=== PATIENT | male | born 1965 | race Caucasian/White ===

== ENCOUNTER 2018-12-08 22:48 | Emergency (ER) | payer BC ==
[2018-12-08] MEDS ORDERED: SODIUM CHLORIDE 0.9% 1,000 ML IV STA (23:09)
[2018-12-08] MEDS ORDERED: KETOROLAC 30 MG/ML 1 ML VIAL IVP STA (23:09)
--- NOTE | 2018-12-08 23:53 | CT ---
EXAMINATION TYPE: CT abdomen pelvis wo con DATE OF EXAM: 12/08/2018 COMPARISON: None HISTORY: Patient presents with right flank pain. Patient states pain radiates into right leg and groi n. NO prior. CT DLP: 550.6 mGycm Automated exposure control for dose reduction was used. TECHNIQUE: Helical acquisition of images was performed from the lung bases through the pelvis. FINDINGS: Lung bases are clear of infiltrate. There is subsegmental atelectasis at the lung bases. There is sma ll hiatal hernia. Heart size is normal. There is no pericardial effusion. Stomach is large with fluid material. Liver spleen pancreas appear normal. Bile ducts are not dilated. Gallbladder appears normal. There is no adrenal mass. There is a 1 cm calcification lower pole of the right kidney. There is jayson re right-sided hydronephrosis. There is 7 mm calcification posterior right kidney. There is cortical thinning upper pole right kidney with dilated calyx. The ureters are not dilated. Bladder distends smoothly. I see no pelvic mass. There is no inguinal hernia. There are multiple sigm oid diverticula. There is no evidence of diverticulitis. The appendix appears normal. There is no sig n of free air. There is no mesenteric edema. There is no free fluid in the pelvis. The lumbar spine is intact. I see no bony destructive process. IMPRESSION: SEVERE RIGHT-SIDED HYDRONEPHROSIS WITH RIGHT-SIDED RENAL CALCULI. THERE IS NARROWING AT THE URETEROPE LVIC JUNCTION. NO OBSTRUCTING CALCULUS SEEN.
[2018-12-08 23:54] LABS: Albumin 4.1 g/dL (3.5-5.0); Calcium 9.5 mg/dL (8.4-10.2); Potassium 4.5 mmol/L (3.5-5.1); Total Bilirubin 0.5 mg/dL (0.2-1.3); Total Protein 6.9 g/dL (6.3-8.2)
[2018-12-09 00:03] LABS: Basophils % (A) 0 %; Eosinophils # (A) 0.2 k/uL (0-0.7); Eosinophils % (A) 2 %; HCT 43.9 % (39.0-53.0); HGB 14.6 gm/dL (13.0-17.5); Lymphocytes # (A) 1.5 k/uL (1.0-4.8); Lymphocytes % (A) 17 %; MCH 29.4 pg (25.0-35.0); MCHC 33.2 g/dL (31.0-37.0); MCV 88.6 fL (80.0-100.0); Mean Platelet Volume 6.6; Monocytes # (A) 0.4 k/uL (0-1.0); Monocytes % (A) 4 %; Neutrophils % (A) 75 %; Platelet Count 206 k/uL (150-450); RBC 4.95 m/uL (4.30-5.90); RDW 13.5 % (11.5-15.5); WBC 9.3 k/uL (3.8-10.6)
--- NOTE | 2018-12-09 00:07 | ED ---
General Adult HPI - General Source: patient, RN notes reviewed, old records reviewed Mode of arrival: ambulatory Limitations: no limitations <Trino Meredith - Last Filed: 12/09/18 00:22> <Ledy Fuchs - Last Filed: 12/09/18 16:15> - General Chief complaint: Abdominal Pain Stated complaint: Back Pain Time Seen by Provider: 12/08/18 23:05 - History of Present Illness Initial comments: 53-year-old male patient with no pertinent past history presents ED with 2 days of right flank pain that radiates down to his right testicle. Patient states that the flank pain as a crampy waxing and waning pain that comes and goes through the day. Patient states that yesterday he had some straining to urinate , however today's been able to urinate without difficulty. Patient denies any hematuria. Patient denies any other areas of abdominal pain, states the pains are located in his right flank. Patient denies any nausea vomiting or diarrhea. Patient denies any chest pain or shortness of breath. Patient denies other complaints. Systemic: Pt denies fatigue, myalgia, fever/chills, rash. Pt denies weakness, night sweats, weight loss. Neuro: Pt denies headache, visual disturbances, syncope or pre-syncope. HEENT: Pt denies ocular discharge or irritation, otalgia, rhinorrhea, pharyngitis or notable lymphadenopathy. Cardiopulmonary: Pt denies chest pain, SOB, heart palpitations, dyspnea on exertion. Abdominal/GI: Pt denies abdominal pain, n/v/d. : Pt denies dysuria, burning w/ urination, frequency/urgency. Denies new onset urinary or bowel incontinence. MSK: Pt denies myalgia, loss of strength or function in extremities. Neuro: Pt denies new onset weakness, paresthesias. (Trino Meredith) - Related Data Home Medications Medication Instructions Recorded Confirmed Ascorbic Acid [Vitamin C] 1,000 mg PO DAILY 12/08/18 12/08/18 Loratadine [Claritin] 10 mg PO DAILY 12/08/18 12/08/18 Multivitamins, Thera [Multivitamin 1 tab PO DAILY 12/08/18 12/08/18 (formulary)] Previous Rx's Medication Instructions Recorded Tamsulosin HCl [Flomax] 0.4 mg PO DAILY #7 cap 12/09/18 Tamsulosin [Flomax] 0.4 mg PO DAILY #10 cap 12/09/18 Allergies Allergy/AdvReac Type Severity Reaction Status Date / Time No Known Allergies Allergy Verified 12/08/18 23:23 Review of Systems ROS Other: All systems not noted in ROS Statement are negative. <Trino Meredith Jhony - Last Filed: 12/09/18 00:22> ROS Other: All systems not noted in ROS Statement are negative. <Ledy Fuchs - Last Filed: 12/09/18 16:15> ROS Statement: Those systems with pertinent positive or pertinent negative responses have been documented in the HPI. Past Medical History Past Medical History: GERD/Reflux History of Any Multi-Drug Resistant Organisms: None Reported Past Surgical History: Tonsillectomy Past Psychological History: No Psychological Hx Reported Smoking Status: Light tobacco smoker Past Alcohol Use History: None Reported Past Drug Use History: Marijuana <Trino Meredith Jhony - Last Filed: 12/09/18 00:22> General Exam Limitations: no limitations <Trino Meredith - Last Filed: 12/09/18 00:22> <Ledy Fuchs - Last Filed: 12/09/18 16:15> - General Exam Comments Initial Comments: Constitutional: NAD, AOX3, Pt has pleasant affect. HEENT: NC/AT, trachea midline, neck supple, no lymphadenopathy. Posterior pharynx non erythematous, without exudates. External ears appear normal, without discharge. Mucous membranes moist. Eyes PERRLA, EOM intact. There is no scleral icterus. No pallor noted. Cardiopulmonary: RRR, no murmurs, rubs or gallops, no JVD noted. Lungs CTAB in anterior and posterior gomez. No peripheral edema. Abdominal exam: Abdomen soft and non-distended. Abdomen non-tender to palpation in all 4 quadrants. Bowel sounds active in LLQ. No hepatosplenomegaly. No ecchymosis. Right flank mildly tender to palpation. CVA tenderness negative. Neuro: CN II-XII grossly intact. No nuchal rigidity. MSK: No posterior calf tenderness bilaterally, homans sign negative bilaterally. Posterior tibialis and radial pulse +2 bilaterally. Sensation intact in upper and lower extremities. Full active ROM in upper and lower extremities, 5/5 stregnth. (Trino Meredith) Vital Signs 12/08/18 12/09/18 22:54 01:57 Temperature 97.9 F 97.6 F Pulse Rate 72 66 Respiratory 18 19 Rate Blood Pressure 144/95 130/88 O2 Sat by Pulse 97 95 Oximetry Medical Decision Making - Lab Data Result diagrams: 12/08/18 23:32 12/08/18 23:32 <Trino Meredith - Last Filed: 12/09/18 00:22> - Lab Data Result diagrams: 12/08/18 23:32 12/08/18 23:32 - Radiology Data Radiology results: report reviewed <Ledy Fuchs - Last Filed: 12/09/18 16:15> - Medical Decision Making 53-year-old male patient with no pertinent past history presents ED with 2 days of right flank pain that radiates down to his right testicle. Patient states that the flank pain as a crampy waxing and waning pain that comes and goes through the day. Patient states that yesterday he had some straining to urinate , however today's been able to urinate without difficulty. Patient denies any hematuria. Patient denies any other areas of abdominal pain, states the pains are located in his right flank. Patient will signs stable, afebrile. Physical exam displayed tenderness to right flank. No CVA tenderness. Laboratory investigations revealed non-impressive CBC, no leukocytosis. CMP revealed slight increase in creatinine 1.33. Noncontrast CT of abdomen and pelvis revealed severe right-sided hydronephrosis and right-sided renal calculi, there is narrowing at the ureteropelvic junction. No obstructing calculus seen. Case signed out to [facility] Ledy Fuchs pending UA (Trino Meredith) 53-year-old male patient presents to the emergency department today for evaluation of right flank pain and right testicular pain. This case was signed out to me by Trino Meredith PA-c. I did review labs which did show mild elevation in BUN and creatinine. Urinalysis was unremarkable with no abnormal values. CT report was reviewed and did show severe right-sided hydronephrosis with a right-sided renal calculi with narrowing at the UPJ. There was no obstructing calculus. Upon reevaluation patient is resting comfortably in bed. I did discuss labs and findings with the patient. We did discuss use of Flomax and pain medication for symptom relief. We did discuss importance of increasing fluid intake especially water. He is instructed to follow-up with urology for further evaluation. Return parameters were discussed in detail. He verbalizes understanding and agrees this plan. (Ledy Fuchs) - Lab Data Lab Results 12/08/18 12/08/18 12/08/18 Range/Units 00:53 23:32 23:32 WBC 9.3 (3.8-10.6) k/uL RBC 4.95 (4.30-5.90) m/uL Hgb 14.6 (13.0-17.5) gm/dL Hct 43.9 (39.0-53.0) % MCV 88.6 (80.0-100.0) fL MCH 29.4 (25.0-35.0) pg MCHC 33.2 (31.0-37.0) g/dL RDW 13.5 (11.5-15.5) % Plt Count 206 (150-450) k/uL Neutrophils % 75 % Lymphocytes % 17 % Monocytes % 4 % Eosinophils % 2 % Basophils % 0 % Neutrophils # 7.0 (1.3-7.7) k/uL Lymphocytes # 1.5 (1.0-4.8) k/uL Monocytes # 0.4 (0-1.0) k/uL Eosinophils # 0.2 (0-0.7) k/uL Basophils # 0.0 (0-0.2) k/uL Sodium 139 (137-145) mmol/L Potassium 4.5 (3.5-5.1) mmol/L Chloride 107 (98-107) mmol/L Carbon Dioxide 26 (22-30) mmol/L Anion Gap 6 mmol/L BUN 25 H (9-20) mg/dL Creatinine 1.33 H (0.66-1.25) mg/dL Est GFR (CKD-EPI)AfAm 70 (>60 ml/min/1.73 sqM) Est GFR (CKD-EPI)NonAf 61 (>60 ml/min/1.73 sqM) Glucose 115 H (74-99) mg/dL Calcium 9.5 (8.4-10.2) mg/dL Total Bilirubin 0.5 (0.2-1.3) mg/dL AST 25 (17-59) U/L ALT 41 (21-72) U/L Alkaline Phosphatase 48 (38-126) U/L Total Protein 6.9 (6.3-8.2) g/dL Albumin 4.1 (3.5-5.0) g/dL Amylase 91 (30-110) U/L Lipase 188 (23-300) U/L Urine Color Yellow Urine Appearance Clear (Clear) Urine pH 6.0 (5.0-8.0) Ur Specific [place] 1.021 (1.001-1.035) Urine Protein Negative (Negative) Urine Glucose (UA) Negative (Negative) Urine Ketones Negative (Negative) Urine Blood Negative (Negative) Urine Nitrite Negative (Negative) Urine Bilirubin Negative (Negative) Urine Urobilinogen <2.0 (<2.0) mg/dL Ur Leukocyte Esterase Negative (Negative) - Radiology Data CT abdomen and pelvis without contrast was obtained. Report was reviewed in its entirety. Impression by Dr. Wells shows severe right-sided hydronephrosis with right-sided renal calculi. There is narrowing at the ureteropelvic junction. No obstructing calculus seen. (Ledy Fuchs) Disposition <Trino Meredith - Last Filed: 12/09/18 00:22> Is patient prescribed a controlled substance at d/c from ED?: No Time of Disposition: 02:15 <Ledy Fuchs - Last Filed: 12/09/18 16:15> Clinical Impression: Renal calculi, Hydronephrosis, right Disposition: HOME SELF-CARE Condition: Stable Instructions (If sedation given, give patient instructions): Kidney Stones (ED) Additional Instructions: Patient to adhere to previously discussed treatment plan and will take medication(s) as directed. Patient to follow up with PCP in 1-2 days. Patient to return to ED if symptoms do not improve. Prescriptions: Tamsulosin [Flomax] 0.4 mg PO DAILY #10 cap Tamsulosin HCl [Flomax] 0.4 mg PO DAILY #7 cap Referrals: Nonstaff,Physician [Primary Care Provider] - 1-2 days Prosper Jean MD [STAFF PHYSICIAN] - 1-2 days
[2018-12-09] MEDS ORDERED: MORPHINE SULFATE 4 MG/ML SYRINGE IV STA (00:15)
[2018-12-09 01:17] LABS: Appearance,Urine Clear (Clear); Bilirubin,Urine Negative (Negative); Blood,Urine Negative (Negative); Color,Urine Yellow; Glucose,Urine (UA) Negative (Negative); Ketones,Urine Negative (Negative); Leukocyte Esterase,Urine Negative (Negative); Nitrite,Urine Negative (Negative); Protein,Urine Negative (Negative); Specific Gravity,Urine 1.021 (1.001-1.035); Urobilinogen,Urine <2.0 mg/dL (<2.0)
[2018-12-09 02:02] VITALS: BP 130/88; PULSE 66; RESP 19; TEMP 97.6
[2018-12-09] MEDS ORDERED: ACET/COD 300 MG/30 MG STARTER PACK 6 TAB BTL PO STA (02:15)
== END 2018-12-09 02:33 | disposition home or self-care (01) ==
LOC: EC 22:48
DX: N13.2 Hydronephrosis with renal and ureteral calculous obstruction (principal); F17.200 Nicotine dependence, unspecified, uncomplicated; Z79.899 Other long term (current) drug therapy
CPT/HCPCS: 99285; 96374; 96375; 36415; 80053; 82150; 83690; 85025; 81003; 74176; 96361; J2270; J1885

== ENCOUNTER 2019-01-29 12:53 | Emergency (ER) | payer BC ==
[2019-01-29] MEDS ORDERED: MORPHINE SULFATE 4 MG/ML SYRINGE IVP STA (13:52)
[2019-01-29 14:07] VITALS: RESP 18
--- NOTE | 2019-01-29 14:13 | ED ---
General Adult HPI - General Chief complaint: Urogenital Stated complaint: Post Op Pain in groin area Time Seen by Provider: 01/29/19 13:14 Source: patient Mode of arrival: ambulatory Limitations: no limitations - History of Present Illness Initial comments: Dictation was produced using [employer] dictation software. please excuse any gramm atical, word or spelling errors. Chief Complaint: 54-year-old male with past medical history of GERD and nephrolithiasis presents with right groin pain. History of Present Illness: Patient's 54-year-old male with a right groin pain. Patient was seen in the emergency department in November where he was diagnosed with nephrolithiasis. Patient was followed up by urology. He was found to have a ureteral cyst causing a kink in his ureter. He was referred to urologist at [facility] who did decortication procedure with improvement of ureter function. He had that procedure performed laparoscopically. Patient is here today because he's been having right groin pain. Patient has no history of hernia. He states it's worse with coughing. States there was mild swelling to the right testicle. Denies any nausea or vomiting. He did have a episode of diarrhea. The ROS documented in this emergency department record has been reviewed and confirmed by me. Those systems with pertinent positive or negative responses have been documented in the HPI. All other systems are other negative and/or noncontributory. PHYSICAL EXAM: General Impression: Alert and oriented x3, not in acute distress HEENT: Normocephalic atraumatic, extra-ocular movements intact, pupils equal and reactive to light bilaterally, mucous membranes moist. Cardiovascular: Heart regular rate and rhythm, S1&S2 audible, no murmurs, rubs or gallops Chest: Lungs clear to auscultation bilaterally, no rhonchi, no wheeze, no rales Abdomen: Bowel sounds present, abdomen soft, non-tender, non-distended, no organomegaly Musculoskeletal: Pulses present and equal in all extremities, no peripheral edema Motor: no focal deficits noted Neurological: CN II-XII grossly intact, no focal motor or sensory deficits noted Skin: Intact with no visualized rashes Psych: Normal affect and mood Genitourinary: Palpable mass at the right groin with Valsalva, no testicular tenderness or testicular size asymmetry, reducible. Clinical presentation consistent with nephrolithiasis pain and inguinal hernia. Return evaluation obtained. CBC, metabolic panel, urinalysis is unremarkable. Patient is well- appearing at bedside. Patient given 2 doses of IV analgesia for his kidney stone pain. He over appears well. Patient given groin support device. Discussed patient case with general surgery. Patient be given referral to general surgery for outpatient management of hernia. ED course: 54-year-old male presents with chief complaint of right groin pain. All signs upon arrival are within acceptable limits. Clinical presentation consistent with inguinal hernia repaired there does not appear to be any signs of incarceration or strangulation. - Related Data Home Medications Medication Instructions Recorded Confirmed Ascorbic Acid [Vitamin C] 1,000 mg PO DAILY 12/08/18 01/29/19 Loratadine [Claritin] 10 mg PO DAILY 12/08/18 01/29/19 Multivitamins, Thera [Multivitamin 1 tab PO DAILY 12/08/18 01/29/19 (formulary)] Allergies Allergy/AdvReac Type Severity Reaction Status Date / Time No Known Allergies Allergy Verified 01/29/19 14:03 Review of Systems ROS Statement: Those systems with pertinent positive or pertinent negative responses have been documented in the HPI. ROS Other: All systems not noted in ROS Statement are negative. Past Medical History Past Medical History: GERD/Reflux Additional Past Medical History / Comment(s): kidney stone History of Any Multi-Drug Resistant Organisms: None Reported Past Surgical History: Tonsillectomy Additional Past Surgical History / Comment(s): ureter surgery Past Psychological History: No Psychological Hx Reported Smoking Status: Light tobacco smoker Past Alcohol Use History: None Reported Past Drug Use History: Marijuana General Exam Limitations: no limitations Course Vital Signs 01/29/19 01/29/19 13:05 14:04 Temperature 97.3 F L Pulse Rate 100 82 Respiratory 20 18 Rate Blood Pressure 148/105 141/90 O2 Sat by Pulse 98 97 Oximetry Medical Decision Making - Lab Data Result diagrams: 01/29/19 14:01 01/29/19 14:01 Lab Results 01/29/19 01/29/19 01/29/19 Range/Units 14:01 14:01 14:01 WBC 9.6 (3.8-10.6) k/uL RBC 5.28 (4.30-5.90) m/uL Hgb 15.4 (13.0-17.5) gm/dL Hct 47.0 (39.0-53.0) % MCV 89.1 (80.0-100.0) fL MCH 29.2 (25.0-35.0) pg MCHC 32.8 (31.0-37.0) g/dL RDW 13.6 (11.5-15.5) % Plt Count 203 (150-450) k/uL Neutrophils % 78 % Lymphocytes % 14 % Monocytes % 5 % Eosinophils % 3 % Basophils % 0 % Neutrophils # 7.4 (1.3-7.7) k/uL Lymphocytes # 1.3 (1.0-4.8) k/uL Monocytes # 0.5 (0-1.0) k/uL Eosinophils # 0.3 (0-0.7) k/uL Basophils # 0.0 (0-0.2) k/uL Sodium 138 (137-145) mmol/L Potassium 4.1 (3.5-5.1) mmol/L Chloride 104 (98-107) mmol/L Carbon Dioxide 24 (22-30) mmol/L Anion Gap 10 mmol/L BUN 21 H (9-20) mg/dL Creatinine 1.17 (0.66-1.25) mg/dL Est GFR (CKD-EPI)AfAm 81 (>60 ml/min/1.73 sqM) Est GFR (CKD-EPI)NonAf 70 (>60 ml/min/1.73 sqM) Glucose 105 H (74-99) mg/dL Calcium 9.5 (8.4-10.2) mg/dL Urine Color Yellow Urine Appearance Clear (Clear) Urine pH 5.0 (5.0-8.0) Ur Specific [place] 1.009 (1.001-1.035) Urine Protein Negative (Negative) Urine Glucose (UA) Negative (Negative) Urine Ketones Negative (Negative) Urine Blood Trace H (Negative) Urine Nitrite Negative (Negative) Urine Bilirubin Negative (Negative) Urine Urobilinogen <2.0 (<2.0) mg/dL Ur Leukocyte Esterase Negative (Negative) Urine RBC 3 (0-5) /hpf Urine WBC 2 (0-5) /hpf Urine Mucus Rare H (None) /hpf Disposition Clinical Impression: Inguinal hernia, Nephrolithiasis Disposition: HOME SELF-CARE Condition: Good Instructions (If sedation given, give patient instructions): Inguinal Hernia (ED) Is patient prescribed a controlled substance at d/c from ED?: No Referrals: Nonstaff,Physician [Primary Care Provider] - 1-2 days Steven Pool DO [Doctor of Osteopathic Medicine] - 1-2 days Time of Disposition: 15:03
[2019-01-29 14:14] LABS: Basophils % (A) 0 %; Eosinophils # (A) 0.3 k/uL (0-0.7); Eosinophils % (A) 3 %; HGB 15.4 gm/dL (13.0-17.5); Lymphocytes # (A) 1.3 k/uL (1.0-4.8); Lymphocytes % (A) 14 %; MCH 29.2 pg (25.0-35.0); MCHC 32.8 g/dL (31.0-37.0); MCV 89.1 fL (80.0-100.0); Mean Platelet Volume 6.7; Monocytes # (A) 0.5 k/uL (0-1.0); Monocytes % (A) 5 %; Neutrophils # (A) 7.4 k/uL (1.3-7.7); Neutrophils % (A) 78 %; Platelet Count 203 k/uL (150-450); RBC 5.28 m/uL (4.30-5.90); RDW 13.6 % (11.5-15.5); WBC 9.6 k/uL (3.8-10.6)
[2019-01-29 14:17] LABS: Appearance,Urine Clear (Clear); Bilirubin,Urine Negative (Negative); Blood,Urine Trace (Negative); Color,Urine Yellow; Glucose,Urine (UA) Negative (Negative); Ketones,Urine Negative (Negative); Leukocyte Esterase,Urine Negative (Negative); Mucus,Urine Rare /hpf; Nitrite,Urine Negative (Negative); Protein,Urine Negative (Negative); RBC,Urine 3 /hpf (0-5); Specific Gravity,Urine 1.009 (1.001-1.035); Urobilinogen,Urine <2.0 mg/dL (<2.0)
[2019-01-29 14:25] LABS: Calcium 9.5 mg/dL (8.4-10.2); Potassium 4.1 mmol/L (3.5-5.1)
[2019-01-29] MEDS ORDERED: HYDROmorphone 0.5 MG/0.5 ML SYRINGE IVP STA (14:53)
[2019-01-29 15:03] VITALS: BP 142/92; PULSE 72; TEMP 97.8
== END 2019-01-29 15:33 | disposition home or self-care (01) ==
LOC: EC 12:53
DX: K40.90 Unilateral inguinal hernia, without obstruction or gangrene, not specified as recurrent (principal); N20.0 Calculus of kidney; F17.200 Nicotine dependence, unspecified, uncomplicated; Z79.899 Other long term (current) drug therapy; Z98.890 Other specified postprocedural states
CPT/HCPCS: 36415; 80048; 85025; 81001; 99283; 96374; 96375; J2270; J1170

== ENCOUNTER → 2019-02-05 | Outpatient (CLI) | payer BC ==
--- NOTE | 2019-02-05 08:19 | XR ---
EXAMINATION TYPE: XR KUB DATE OF EXAM: 02/05/2019 7:09 AM CLINICAL HISTORY: Right-sided kidney stone and pain. TECHNIQUE: Two supine KUB images of the abdomen are obtained. COMPARISON: CT abdomen pelvis December 08, 2018 FINDINGS: Right-sided renal calculus less well seen on plain films as there is overlying colonic feca l material present. No definitive left-sided renal calculi. Overall nonobstructive bowel gas pattern. Lung bases are clear. Visualized osseous structures show so me mild multilevel lateral spurring. IMPRESSION: Poor visualization of known right-sided renal calculus.
== END | disposition home or self-care (01) ==
LOC: RADXRMAIN 07:01
PROVIDERS: ATTEND Urology
DX: N20.0 Calculus of kidney (principal)
CPT/HCPCS: 74018

== ENCOUNTER → 2019-11-24 | Outpatient (CLI) | payer BC ==
--- NOTE | 2019-11-24 16:06 | US ---
EXAMINATION TYPE: US kidneys/renal and bladder DATE OF EXAM: 11/24/2019 COMPARISON: CT CLINICAL HISTORY: N20.1 Calculus of ureter. Prior renal stones per patient. Patient stated had right renal cyst removed. EXAM MEASUREMENTS: Right Kidney: 10.1 x x5.4 x 5.0 cm Left Kidney: 11.9x 6.3 x 5.5 cm Post Void Residual Volume: 4.4 mL Right Kidney: mild hydronephrosis ; no renal stone seen Left Kidney: lobular cortex noted mid pole Bladder: wnl Bilateral Jets seen: Yes Normal Post Void Residual: Yes IMPRESSION: 1. Normal renal ultrasound
--- NOTE | 2019-11-24 16:08 | XR ---
EXAMINATION TYPE: XR KUB DATE OF EXAM: 11/24/2019 3:47 PM CLINICAL HISTORY: Renal calculus per order. TECHNIQUE: Two supine KUB images of the abdomen are obtained. COMPARISON: CT abdomen and pelvis December 08, 2018 and KUB x-ray February 05, 2019. FINDINGS: Renal calculi not well visualized on this plain film nor prior abdominal x-ray study. Overall nonobstructive bowel gas pattern. Some spurring in the lumbar spine is redemonstrated.. IMPRESSION: Similar through the prior x-ray poor visualization of known right-sided renal calculi on CT perhaps due to composition.
== END | disposition home or self-care (01) ==
LOC: RADUSWWP 13:32
PROVIDERS: ATTEND Urology
DX: N20.0 Calculus of kidney (principal); N20.1 Calculus of ureter
CPT/HCPCS: 74018; 76770